=== PATIENT | female | born 1960 | race Caucasian/White ===

== ENCOUNTER 2017-08-21 13:32 | Observation (INO) | payer OTHER ==
[~2017-08-21] VITALS: Ht 167.6 cm; Wt 63.5 kg
[2017-08-21 15:09] LABS: BASO # 0.1 (0.0-0.2); EOS # 0.1 (0.0-0.7); EOS % 1.5 % (0-4.0); GRAN # 5.9 (1.4-6.5); GRAN % 64.7 % (42.2-75.2); HEMATOCRIT 40.4 % (37.0-47.0); HEMOGLOBIN 13.6 g/dl (12.5-16.0); LYMPH # 2.5 (1.2-3.4); LYMPH % 27.1 % (20.0-51.0); MEAN CELL VOLUME 91 fl (80.0-100.0); MEAN CORPUSCULAR HEMOGLOBIN 31 pg (27.0-31.0); MEAN CORPUSCULAR HGB CONC 34 g/dl (33.0-37.0); MEAN PLATELET VOLUME 10.4 fl (7.4-10.4); MONO # 0.5 (0.1-0.6); MONO % 5.3 % (1.7-9.3); PLATELET COUNT 288 K/mm3 (130-400); RED BLOOD COUNT 4.43 M/mm3 (4.10-5.30); REDCELL DISTRIBUTION WIDTH-CV 12.7 % (11.5-14.5)
[2017-08-21 15:19] LABS: ALBUMIN 3.9 gm/dL (3.5-5.0); BILIRUBIN,TOTAL 0.4 mg/dL (0.0-1.0); CALCIUM 9.4 mg/dL (8.4-10.2); CREATININE, serum 0.81 mg/dL (0.52-1.25); POTASSIUM 4.1 mmol/L (3.4-5.0); TOTAL PROTEIN 7.5 gm/dL (6.4-8.2)
[2017-08-21 15:29] LABS: LIPASE 162 U/L (23-300)
[2017-08-21 15:55] VITALS: BP 110/64; PULSE 68; TEMP 98.6
[2017-08-21 16:12] LABS: TROPONIN-I < 0.012 ng/mL (0.000-0.034)
[2017-08-21 22:00] VITALS: BP 108/48; PULSE 86; TEMP 98.3
[2017-08-22 05:40] VITALS: BP 91/57; PULSE 89; TEMP 97.5
[2017-08-22 08:42] VITALS: BP 106/63; PULSE 106; TEMP 97.6
[2017-08-22 11:45] VITALS: BP 107/59; PULSE 117; TEMP 97.7
[2017-08-22] MEDS ORDERED: NEURONTIN100 MG/CAP PO (11:52)
[2017-08-22] MEDS ORDERED: LIDO 1% IH (11:52)
[2017-08-22] MEDS ORDERED: LIDODERM 5% PATC1 EA TP (11:53)
== END 2017-08-22 16:15 | disposition home or self-care (01) ==
LOC: MEDICAL 13:32
PROVIDERS: Nurse Practitioner Family
DX: S22.32XA Fracture of one rib, left side, initial encounter for closed fracture (principal); R05 Cough
CPT/HCPCS: A9284; G0378; G0379; J1650; J7512; Q9967